=== PATIENT | female | born 1970 | race Caucasian/White ===

== ENCOUNTER 2017-02-13 10:36 | Outpatient (CLI) | payer OTHER ==
--- NOTE | 2017-02-13 11:39 | MMO ---
BILATERAL SCREENING MAMMOGRAM: DATE: 02/13/17 HISTORY: 46-year-old female for screening mammography. COMPARISON: 01/31/16, 11/21/14, 09/29/13. FINDINGS: Bilateral MLO and CC views of the breasts show heterogeneously dense breast parenchyma, which may lo wer the sensitivity of mammography. There is no evidence of suspicious mass, suspicious cluster of m icrocalcifications, or area of architectural distortion. Interpretation of this mammogram was performed with the assistance of computer-aided detection. IMPRESSION: BIRADS 1: Negative Annual screening mammography is recommended. POS: [facility]
== END 2017-02-13 10:37 | disposition home or self-care (01) ==
LOC: SCSMAMMO 10:36
PROVIDERS: ATTEND Family Medicine
DX: Z12.31 Encounter for screening mammogram for malignant neoplasm of breast (principal)
CPT/HCPCS: 77067; G0202

== ENCOUNTER 2017-07-14 01:34 | Inpatient (IN) | payer OTHER ==
[2017-07-14] MEDS ORDERED: Ondansetron HCl/PF 4 MG/2 ML Vial ONE (02:09)
[2017-07-14 02:31] LABS: ALT (SGPT) 24 U/L (8-55); AST (SGOT) 23 U/L (5-34); Albumin 3.8 g/dL (3.5-5.0); Alkaline Phosphatase 76 U/L (40-150); Anion Gap 19 mmol/L (10-20); BUN (Urea Nitrogen) 15 mg/dL (7.0-18.7); Bilirubin, Total 0.3 mg/dL (0.2-1.2); CK (CPK) 79 U/L (29-168); Calc. Creatinine Clearance 0 mL/min (70-130); Carbon Dioxide 19 mmol/L (22-29); Chloride 102 mmol/L (98-107); Estimated GFR-MDRD 67; Globulin 3.3 g/dL (2.4-3.5); Glucose 153 mg/dL (70-105); Lipase 25 U/L (8-78); Potassium 3.8 mmol/L (3.5-5.1); Protein, Total 7.1 g/dL (6.0-8.3); Sodium 136 mmol/L (136-145)
[2017-07-14 02:34] LABS: Bilirubin Negative (Negative); Blood, Urine Trace (Negative); Clarity Clear (Clear); Glucose, Urine (Dipstick) Negative (Negative); Leukocyte Negative (Negative); Nitrite Negative (Negative); Protein, Urine (Dipstick) Negative (Neg-Trace); Urobilinogen 0.2 mg/dL (0.2-1.0); pH, Urine 5.5 (5.0-9.0)
[2017-07-14 02:36] LABS: CKMB 0.9 ng/mL (0-6.6); Troponin I Less than 0.010 ng/mL (< 0.028)
[2017-07-14] MEDS ORDERED: Piperacillin/Tazobactam 4.5 GM VIAL ONE (02:45)
[2017-07-14] MEDS ORDERED: Sodium Chloride 0.9% 100 ML ONE ×2 (02:45→02:59)
[2017-07-14 02:52] LABS: Bacteria/HPF None Seen HPF (None Seen); Hyaline Casts/LPF 0-3 HYALINE CAST LPF (0-3 Hyaline); RBC/HPF 0-3 HPF (0-3); Squamous Epithelial 0-3 HPF (0-3); WBC/HPF 0-3 HPF (0-3)
[2017-07-14 03:08] LABS: Hemoglobin 11.2 g/dL (12.0-16.0); Mean Corpuscular Hemoglobin 28.7 pg (27.0-31.0); Mean Corpuscular Volume 84.2 fl (81.0-99.0); Platelet Count 283 thou/uL (130-400); RBC Distribution Width 11.7 % (11.5-14.5); Red Blood Cell (RBC) Count 3.92 mill/uL (4.20-5.40)
[2017-07-14 03:23] LABS: Band 6 % (5-11); Lymphocytes 6 % (21-51); MDiff Complete? YES; Monocytes 1 % (0-10); Neutrophil 87 % (42-75); Toxic Granulation SLIGHT
[2017-07-14] MEDS ORDERED: Ondansetron HCl/PF 4 MG/2 ML Vial IVP PRN (04:50)
[2017-07-14] MEDS ORDERED: Ondansetron ODT 4 MG TAB PO PRN (04:50)
[2017-07-14] MEDS ORDERED: Milk Of Magnesia 30 ML UDCUP PO PRN (04:50)
[2017-07-14 05:34] VITALS: BMI 31.3
[2017-07-14] MEDS: Sodium Chloride 0.9% 1,000 ML IV SCH ×2 (05:49→13:49)
[2017-07-14] MEDS: Acetaminophen 325 MG TAB PO PRN ×2 (05:49→17:33)
--- NOTE | 2017-07-14 05:53 | HP ---
PRIMARY CARE PHYSICIAN: Dr. Margarita Molina CHIEF COMPLAINT: Fever. HISTORY OF PRESENT ILLNESS: 47-year-old female with a past medical history of depression, hypertension and asthma who presented to the emergency room with complaint of fever. She reports that about 2 weeks ago, she had a high grade fever of about 103 degrees Fahrenheit associated with 2 episodes of loose stools daily. After a week this resolved and then yesterday she developed the fever again with the return of the 2 soft bowel movements daily associated with nausea. She also felt dehydrated, had chills, aches and chest discomfort. There was no history of cough, sputum production, vomiting. She has no abdominal pain, no shortness of breath. She has no urinary symptoms. She went to the emergency room at [place] where she was found to be febrile, tachycardic to the 120s, had leukocytosis and an elevated lactate of 4.1. Blood cultures were taken. Chest x-ray showed no acute pathology. She was started on broad spectrum antibiotics , vancomycin and Zosyn and sent to [facility] for further care. PAST MEDICAL HISTORY: Asthma, hypertension, depression. PAST SURGICAL HISTORY: Four C-sections, a tummy tuck, right oophorectomy, left cystectomy. SOCIAL HISTORY: She does not smoke cigarettes, but drinks alcohol occasionally. No history of withdrawal symptoms or dependence. FAMILY HISTORY: Reviewed and noncontributory. ALLERGIES: BELLADONNA, ZOLOFT. HOME MEDICATIONS: Albuterol inhaler, Benadryl 50 mg at bedtime, ferrous sulfate 7.5 mg t.i.d., fluticasone salmeterol inhaled twice daily, hydrochlorothiazide 25 mg daily, loratadine 10 mg daily, metoprolol succinate 50 mg daily, omeprazole 10 mg daily, venlafaxine 75 mg daily, zolpidem 10 mg at bedtime. REVIEW OF SYSTEMS: CONSTITUTIONAL: Positive for fevers, chills, malaise. HEENT: Negative. RESPIRATORY: Negative. CARDIOVASCULAR: Negative. ABDOMEN: Positive for nausea, otherwise negative. NEUROLOGIC: Negative. SKIN: Negative. MUSCULOSKELETAL: Negative. PSYCHIATRIC: Negative. ALLERGY/IMMUNOLOGY: Negative. PHYSICAL EXAMINATION: GENERAL: Not in acute distress, lying comfortably in bed. HEENT: PERRLA, EOMI. Normocephalic, atraumatic. Slightly dry mucous membranes , not pale, anicteric. RESPIRATORY: Vesicular breath sounds bilaterally. No wheezes or rales. CARDIOVASCULAR: S1, S2 only. Regular rate and rhythm. No murmurs, rubs or gallops. ABDOMEN: Soft, nontender, nondistended. Bowel sounds positive. No hepatosplenomegaly. : Deferred. MUSCULOSKELETAL: No edema, no skeletal abnormalities. SKIN: Warm, dry, well perfused. No rashes or lesions. NEUROLOGIC: Alert and well oriented to time, place and person. No focal deficits. PSYCHIATRIC: Normal mood and affect. LABORATORY: Significant labs include WBC of 16,000. Serum chemistry with lactate of 4.1. Troponin was less than 0.010. Lipase was not elevated. Blood cultures pending. Chest x-ray no acute abnormalities. ASSESSMENT AND PLAN: 1. Sepsis. The patient had a high grade fever, was tachycardic, had elevated WBC count and lactate levels. Blood cultures have been taken and she has been started on IV vancomycin and Zosyn. We will follow up blood cultures and also hydrate parenterally. 2. Hypertension. Blood pressure is currently at goal. We will resume home medications as tolerated. 3. Asthma. Will place her on her home inhalers as well as nebulizer of albuterol p.r.n. 4. History of depression. We will resume home medications. We will also repeat a lactic acid level. If patient has spikes of fever, we will get repeat cultures and if she has more loose stools, we will obtain stool studies. [facility]
[2017-07-14] MEDS ORDERED: Non-Formulary Item 1 EACH (Zolpidem Tartrate [Ambien] 10 MG) PO PRN (08:13)
[2017-07-14] MEDS ORDERED: PROVENTIL INHALER 6.7 G (200 INHALATIONS) INH PRN ×2 (08:13→08:20)
[2017-07-14] MEDS ORDERED: Zolpidem Tartrate 5 MG TAB PO PRN (08:22)
--- NOTE | 2017-07-14 08:29 | RAD ---
2 VIEWS CHEST: Date: 07/14/17 HISTORY: Fever. Chest pain in 47-year-old female. FINDINGS: PA and lateral views of chest obtained. The lungs are well aerated. No evidence of active intrathorac ic disease seen. No evidence of effusions, pneumonia, or pneumothorax seen. IMPRESSION: Unremarkable 2 views chest. POS: [facility]
[2017-07-14] MEDS ORDERED: FLUTICASONE IH SCH (09:00)
[2017-07-14] MEDS ORDERED: Non-Formulary Item 1 EACH (Omeprazole Magnesium [Prilosec] 40 MG) PO SCH (09:00)
[2017-07-14] MEDS ORDERED: SALMETEROL IH SCH (09:00)
[2017-07-14] MEDS ORDERED: Non-Formulary Item 1 EACH (Loratadine [Claritin] 10 MG) PO SCH (09:00)
[2017-07-14] MEDS: Loratadine 10 MG TAB PO SCH (09:19)
[2017-07-14] MEDS: Heparin 5,000 UNITS/ML VIAL SC SCH ×3 (09:19→21:28)
[2017-07-14] MEDS: Piperacillin/Tazobactam 3.375 GM in Sodium Chloride 0.9% 100 ML IVPB SCH ×3 (09:20→21:28)
[2017-07-14] MEDS ORDERED: Sodium Chloride 0.9% 1,000 ML IV SCH (09:30)
--- NOTE | 2017-07-14 10:36 | PDOC.EVN ---
Event Note - Event Note Event Note: Patient with BP 80s, recheck same. Called by nursing. Patient seen and examined. Light headed. Otherwise feels much better than in ER. Exam unremarkable except for low BP. Had 2 L NS in ER. Will bolus one more liter. Transfer to [facility]. Will start pressors if BP doesn't come up with fluids.
[2017-07-14] MEDS ORDERED: Morphine 5 MG/ML SYRINGE SLOW IVP PRN (10:39)
[2017-07-14] MEDS: Ketorolac Tromethamine 30 MG/ML VIAL IVP PRN ×2 (11:05→17:35)
[2017-07-14] MEDS ORDERED: Morphine 4 MG/ML VIAL SLOW IVP PRN (13:18)
[2017-07-14] MEDS: Albuterol Sulfate 2.5 mg/3 ml Neb NEB PRN ×2 (15:40→18:36)
[2017-07-14] MEDS: Vancomycin HCl 1 GM in Premix Bag 1 BAG IVPB SCH (17:35)
[2017-07-14] MEDS: Mometasone/Formoterol 120 PUFF INHALER INH SCH (18:38)
[2017-07-15] MEDS: Sodium Chloride 0.9% 1,000 ML IV SCH ×2 (00:23→15:39)
[2017-07-15] MEDS ORDERED: Morphine 10 MG/ML VIAL SLOW IVP PRN (02:10)
[2017-07-15] MEDS: Piperacillin/Tazobactam 3.375 GM in Sodium Chloride 0.9% 100 ML IVPB SCH ×4 (02:18→22:20)
[2017-07-15 03:52] LABS: #Eosinphils 0.1 thou/uL (0.0-0.7); Mean Corpuscular Volume 87.8 fl (81.0-99.0); RBC Distribution Width 12.2 % (11.5-14.5)
[2017-07-15 03:58] LABS: #Lymphocytes 1.8 thou/uL (1.20-3.40); #Monocytes 0.4 thou/uL (0.11-0.59); %Basophils 0.4 % (0.0-1.0); %Eosinophils 1.5 % (0.0-10.0); %Lymphocytes 33.6 % (21.0-51.0); %Monocytes 7.6 % (0.0-10.0); %Neutrophils 56.9 % (42.0-75.0); Hemoglobin 10.1 g/dL (12.0-16.0); Mean Corpuscular HGB CONC 33.2 g/dL (32.0-36.0); Mean Corpuscular Hemoglobin 29.1 pg (27.0-31.0); Platelet Count 183 thou/uL (130-400); Red Blood Cell (RBC) Count 3.47 mill/uL (4.20-5.40); White Blood Cell (WBC) Count 5.3 thou/uL (4.8-10.8)
[2017-07-15 04:07] LABS: Anion Gap 9 mmol/L (10-20); BUN (Urea Nitrogen) 6 mg/dL (7.0-18.7); Calc. Creatinine Clearance 114 mL/min (70-130); Carbon Dioxide 25 mmol/L (22-29); Chloride 108 mmol/L (98-107); Estimated GFR-MDRD 85; Glucose 88 mg/dL (70-105); Potassium 3.2 mmol/L (3.5-5.1); Sodium 139 mmol/L (136-145)
[2017-07-15] MEDS: Vancomycin HCl 1 GM in Premix Bag 1 BAG IVPB SCH ×2 (05:41→16:19)
[2017-07-15] MEDS: Mometasone/Formoterol 120 PUFF INHALER INH SCH ×2 (08:54→19:42)
[2017-07-15] MEDS: Potassium Chloride 20 MEQ TAB PO SCH ×3 (08:58→16:19)
[2017-07-15] MEDS: Loratadine 10 MG TAB PO SCH (08:58)
[2017-07-15] MEDS: Heparin 5,000 UNITS/ML VIAL SC SCH ×3 (09:09→22:25)
--- NOTE | 2017-07-15 16:07 | PDOC.PN ---
- Subjective Encounter Start Date: 07/15/17 Encounter Start Time: 12:15 -: old records requested/rev - Objective Resuscitation Status: Resuscitation Status FULL:Full Resuscitation Vital Signs & Weight: Vital Signs (12 hours) Temp Pulse Resp BP Pulse Ox 07/15/17 11:35 98.8 F 91 18 146/80 H 96 07/15/17 08:00 98.8 F 91 18 98 07/15/17 07:47 98.1 F 83 18 127/72 96 Weight Weight 163 lb 7 oz I&O: 07/14/17 07/15/17 07/16/17 06:59 06:59 06:59 Intake Total 600 2150 Balance 600 2150 Result Diagrams: 07/15/17 03:11 07/15/17 03:11 Dx/Plan (1) Colitis Code(s): K52.9 - NONINFECTIVE GASTROENTERITIS AND COLITIS, UNSPECIFIED Status : Acute (2) Septic shock Code(s): A41.9 - SEPSIS, UNSPECIFIED ORGANISM; R65.21 - SEVERE SEPSIS WITH SEPTIC SHOCK Status: Resolved (3) HTN (hypertension) Code(s): I10 - ESSENTIAL (PRIMARY) HYPERTENSION Status: Chronic Qualifiers: Hypertension type: essential hypertension Qualified Code(s): I10 - Essential (primary) hypertension (4) Depression Code(s): F32.9 - MAJOR DEPRESSIVE DISORDER, SINGLE EPISODE, UNSPECIFIED Status : Chronic Qualifiers: Depression Type: unspecified Qualified Code(s): F32.9 - Major depressive disorder, single episode, unspecified - Plan cont current plan of care, continue antibiotics, out of bed/ambulate * .
--- NOTE | 2017-07-15 17:42 | CON ---
DATE OF CONSULTATION: 07/15/2017 SERVICE: Pulmonary Medicine. REASON FOR CONSULTATION: IMCU patient. HISTORY OF PRESENT ILLNESS: The patient is a 47-year-old white female. She was in her usual state o f health until roughly 3 weeks ago. She started having fever. This was going up to 103 degrees. Sh chad thought it was a viral illness because it was accompanied with anorexia and nausea without any vomi ting and loose stools. The loose stools were described as anything that looked like softer of ice cr eam. She typically has bowel movements once every 3 days, but she found herself and having a bowel m ovement whenever she took any p.o. whatsoever. Otherwise, there was significant change to her stool color or character. She had these fevers essentially daily for a 2-week period of time. At that poi nt, they seem to refer. Roughly a couple of days ago; however, she started having recrudescence in f ever type symptoms. At this point, she decided to present to the Emergency Department for additional evaluation. In addition to these symptoms noted above, she is also experiencing fullness behind the eyes, fullness in the ears without any drainage from the nose, dyspnea, and tightness in the chest w hich seems to be reminiscent of previous asthma flares. Arthralgias, particularly with fever, as wel l as myalgia. The patient gets tested for HIV, hepatitis C, hepatitis B, and hepatitis A every single year. She wo rks in the [employer] industry, and gets a T-SPOT on the annual basis. As of this year, all of these things have been unremarkable. REVIEW OF SYSTEMS: General, head, ears, eyes, nose, throat, cardiovascular, respiratory, GI, , mus culoskeletal, neurologic and skin is negative except as mentioned in the HPI. PAST MEDICAL HISTORY: 1. Hypertension. 2. Asthma. 3. Gastroesophageal reflux disease. 4. Major depressive disorder. PAST SURGICAL HISTORY: 1. section x4. 2. Abdominoplasty. 3. Right oophorectomy. 4. Left cystectomy FAMILY HISTORY: Noncontributory. SOCIAL HISTORY: Negative for alcohol, tobacco or illicit drug use. She denies exposures to chemical s, dust asbestos or tuberculosis. ALLERGIES: BELLADONNA, ZOLOFT. MEDICATIONS: List of her inpatient medications were reviewed. No specific updates were made at this time. PHYSICAL EXAMINATION: VITAL SIGNS: Afebrile, pulse 91, blood pressure 146/80, respirations 18, and saturation 96% on room air. GENERAL: The patient awake, alert, in no apparent distress. HEENT: Normocephalic, atraumatic. Sclerae are white, conjunctivae pink. Oral and nasal mucosa is m oist without lesions. LUNGS: Excellent air entry. I do not appreciate a prolonged expiratory phase. There is no wheezing , rhonchi, or crackles present. HEART: Normal rate, regular. There is no murmur present. ABDOMEN: Soft. Minimal tenderness to palpation of the right upper quadrant without rebound or guard ing. [place]rol[place] negative. Bowel sounds are present. There is no rebound or guarding. MUSCULOSKELETAL: No cyanosis or clubbing. There is no pitting in the bilateral lower extremities. NEUROLOGIC: Grossly nonfocal. LABORATORY DATA: WBC 5.3, hemoglobin 10.1, platelets 183,000. Basic metabolic profile is unremarkab le except for potassium of 3.2. Liver function studies are unremarkable. Cardiac enzymes negative x 1. Lactate was originally 4.1, but cleared to 1.6. Urinalysis is unremarkable. Blood cultures x2 a nd influenza are unremarkable. IMAGING: Chest x-ray demonstrates no acute cardiopulmonary abnormality. ASSESSMENT: 1. Fever, recurrent 2. Dehydration. 3. Severe sepsis, possible. 4. Hypertension. 5. Asthma without acute exacerbation. PLAN: We will continue broad spectrum antibiotics while we were waiting for cultures to result. Her marginal blood pressures have completely resolved. We will check a CK, ESR, serologies including antoine pus and rheumatoid studies, sed rate, retic count, and LDH. Pulmonary will continue to follow along for the time being, but from my perspective, she is once again stable for transition out of the [facility].
[2017-07-15] MEDS ORDERED: Morphine 4 MG/ML VIAL SLOW IVP PRN (21:30)
[2017-07-16] MEDS: Piperacillin/Tazobactam 3.375 GM in Sodium Chloride 0.9% 100 ML IVPB SCH (03:07)
[2017-07-16] MEDS: Sodium Chloride 0.9% 1,000 ML IV SCH ×3 (03:54→11:48)
[2017-07-16 05:55] LABS: Reticulocyte Count 1.4 % (0.5-1.5)
[2017-07-16] MEDS: Mometasone/Formoterol 120 PUFF INHALER INH SCH (06:10)
[2017-07-16 06:22] LABS: Anion Gap 10 mmol/L (10-20); BUN (Urea Nitrogen) 11 mg/dL (7.0-18.7); CK (CPK) 37 U/L (29-168); Calc. Creatinine Clearance 97 mL/min (70-130); Calcium 9.2 mg/dL (7.8-10.44); Carbon Dioxide 26 mmol/L (22-29); Chloride 107 mmol/L (98-107); Estimated GFR-MDRD 74; Glucose 100 mg/dL (70-105); LDH 146 U/L (125-220); Magnesium 2.3 mg/dL (1.6-2.6); Phosphorus 3.6 mg/dL (2.3-4.7); Potassium 3.9 mmol/L (3.5-5.1); Sodium 139 mmol/L (136-145)
[2017-07-16 06:24] LABS: Hemoglobin 11.4 g/dL (12.0-16.0); Lymphocytes 33 % (21-51); MDiff Complete? YES; Mean Corpuscular HGB CONC 33.2 g/dL (32.0-36.0); Mean Corpuscular Hemoglobin 29.3 pg (27.0-31.0); Mean Corpuscular Volume 88.2 fl (81.0-99.0); Mean Platelet Volume 6.8 fL (7.4-10.4); Monocytes 3 % (0-10); Neutrophil 64 % (42-75); PLT Morphology Comment Appears Adequate; Platelet Count 247 thou/uL (130-400); RBC Distribution Width 12.4 % (11.5-14.5); White Blood Cell (WBC) Count 6.3 thou/uL (4.8-10.8)
[2017-07-16] MEDS ORDERED: Vancomycin HCl 1.25 GM in Sodium Chloride 0.9% 250 ML 250 ML IVPB SCH (08:00)
[2017-07-16 08:04] VITALS: TEMP 97.6
[2017-07-16] MEDS: Acetaminophen 325 MG TAB PO PRN (08:17)
[2017-07-16] MEDS: Loratadine 10 MG TAB PO SCH (08:18)
[2017-07-16] MEDS: Heparin 5,000 UNITS/ML VIAL SC SCH (08:18)
[2017-07-16] MEDS: Vancomycin HCl 1 GM in Premix Bag 1 BAG IVPB SCH (08:23)
[2017-07-16] MEDS ORDERED: metroNIDAZOLE 500 MG TAB PO SCH (09:00)
[2017-07-16 09:12] VITALS: BP 116/74
--- NOTE | 2017-07-16 09:31 | PRG ---
DATE OF SERVICE: 07/16/2017 SERVICE: Pulmonary Medicine. INTERVAL HISTORY: The patient is doing great from a respiratory standpoint. She is breathing comfor tably. She had a night sweat last night, but otherwise, she did not have any additional fevers. The chest tightness has gone away. Her belly discomfort is a little bit improved as well. Otherwise, t here has been no interval change to her condition. PHYSICAL EXAMINATION: VITAL SIGNS: Afebrile, pulse 74, blood pressure 111/54, respirations 20, saturation 100% on room air . GENERAL: The patient is awake, alert, in no apparent distress. LUNGS: Decent air entry. There is no prolonged expiratory phase, wheezing, rhonchi, or crackles. HEART: Normal rate, regular. ABDOMEN: Soft, nontender, nondistended. Bowel sounds are positive. MUSCULOSKELETAL: No cyanosis or clubbing. There is no pitting in the bilateral lower extremities. NEUROLOGIC: Grossly nonfocal. LABORATORY DATA: WBC 6.3, hemoglobin 11.4, platelets 240. Retic fraction is also quite low. The ES R is very low. The peripheral smear demonstrates normocytic and normochromic anemia. Blood cultures x2 are unremarkable. Influenza A and B are negative. ASSESSMENT: 1. Fever, recurrent. 2. Severe sepsis, possible. 3. Dehydration, resolved. 4. Hypertension. 5. Asthma without acute exacerbation. PLAN: At this point, all laboratories appear to be reassuring. There are a couple of serologies delroy t are currently pending including rheumatoid factor and an JARVIS screen. Haptoglobin is also pending. Given the normal LDH; however, this is unlikely to be remarkable. At this point, I do not see any r edin for her to remain in the hospital, and I think it would be safe from a respiratory standpoint t o discharge her. Source is completely unknown. Blood cultures are negative to date and have not bee n too terribly helpful. The patient has excellent followup and is quite reliable. As such, I do thi nk it would be reasonable to discharge her on a course of antibiotics covering GI issues as that was her most focalizing symptoms, albeit mild. If she has recrudescence in symptoms, I have directed her to return to the emergency department or notify her primary care physician. I spoke with Dr. Cannon , who is okay with and agrees with this course of action moving forward. At this point, she has no f urther requirements for inpatient Pulmonary or Critical Care opinion and I will sign off. We will ne ed to follow up on the serologies through time, but hopefully that will remain negative and her fever will stay away.
--- NOTE | 2017-07-16 14:01 | DIS ---
DATE OF ADMISSION: 07/14/2017 DATE OF DISCHARGE: 07/16/2017 PRIMARY CARE PHYSICIAN: Dr. Margarita Molina. DISCHARGE DIAGNOSES: 1. Presumed colitis, infectious. 2. Dehydration. 3. Septic shock. 4. History of essential hypertension. 5. Uncomplicated asthma. CONSULTATIONS: Pulmonary Critical Care, Dr. Triplett. PROCEDURES: None. HISTORY AND PHYSICAL: Ms. 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 She reported a history of high-grade fever to about 103 approximately 2 weeks prior to admission asso ciated with 2 episodes of loose stools daily for about a week. These are spontaneously resolved about 1 week prior to admission and then the night of admission deve loped another fever to 102 plus 2 soft bowel movements. She felt nauseated, had some chills, body ac hes, and a chest discomfort, and so presented to the emergency department for evaluation. There at the [facility] ER, she was tachycardic to the 120s. Elevated lactate of 4.1, she was hypotensive and febrile. Temperature was 101.3. Chest x-ray was negative. She was started on broad-spectrum antibiotics, given vancomycin and Zosyn, and transferred here for further care. HOSPITAL COURSE: The patient was seen and examined on arrival by Dr. Gramajo and admitted to the [facility]. She was continued on same antibiotics with vancomycin and Zosyn. The patient, on arrival to our ER in transfer, still remained hypotensive and received an additional liter of IV fluids with so me improvement. She was continued on IV fluids on admission, her blood pressure medicines were held, and a repeat lactate level was shown to be improved down to 1.6. Overnight, 07/14/2017 to 07/15/2017, the patient remained afebrile. I took the case over. She was c ontinued on the same antibiotics through the night and was feeling somewhat better. She was able to keep down some food. She took her morning potassium replacement and did become somewhat nauseated, b ut had no further diarrhea. On my exam that day, she did have some left upper and lower quadrant ten derness with minimal guarding. She has no acute abdomen findings. White blood cell count had normalized. She was continued on antibiotics overnight. By 07/16/2017, she was transitioned to oral antibiotics with Levaquin and Flagyl. She has been seen by Pulmonary Critical Care in the meantime, who was not convinced of infection, but did send off a la b work looking for signs of autoimmune or inflammatory bowel disease. She had a positive C-reactive protein of 3.4; however, sed rate was normal, LDH was normal, procalcitonin was 0.2, and the patient continued to improve on the antibiotics. She was tolerating p.o., had negative orthostatics on the d ay of discharge, and was stable for discharge with outpatient followup. PHYSICAL EXAMINATION: The patient was seen and examined on the day of discharge. Discharge plan and disposition was discussed with the patient [id number] at the bedside. Abdominal tenderness had resolved. DISCHARGE MEDICATIONS: 1. Levofloxacin 500 mg p.o. daily for 7 more days. 2. Metronidazole 500 mg p.o. t.i.d. for 7 more days. 3. Albuterol sulfate HFA 2 puffs inhaled as needed. 4. Fluticasone/salmeterol 230/21, 2 inhalations inhaled b.i.d. 5. HCTZ 25 mg daily to restart in 2 days. 6. Claritin 10 mg daily. 7. Metoprolol succinate 50 mg p.o. daily to restart in 2 days. 8. Omeprazole 40 mg daily. 9. Venlafaxine 300 mg p.o. daily. 10. Ambien 10 mg p.o. at bedtime p.r.n. FOLLOWUP APPOINTMENTS: Primary care physician, Dr. Molina, within a week. DISCHARGE ACTIVITY: Per cardiopulmonary limits. DISCHARGE DIET: Heart healthy recommended. DISCHARGE CONDITION: Stable. DISPOSITION: Will be discharged home via private vehicle.
[2017-07-16 15:28] LABS: EliA RAS New Method **** NEW METHOD ****; Rheumatoid Factor IgA Antibody 2.1 IU/mL (<14 Negative); Rheumatoid Factor IgM Antibody 1.2 IU/mL (<3.5 Negative); dsDNA IgG Antibody 1.3 IU/mL (<10 Negative)
[2017-07-18 04:18] LABS: Haptoglobin 226 mg/dL (34-200)
[2017-07-18 17:28] LABS: Anti-Striation AB Negative (Neg:<1:40); Antinuclear AB Negative (Negative); Antiparietal Cell Ab 3.4 Units (0.0-20.0); Complement C4 32 mg/dL (14-44); DSDNA AutoAb 1 IU/mL (0-9); SCL-70 IgG AutoAb <0.2 AI (0.0-0.9); Smith IgG AutoAb 0.2 AI (0.0-0.9); Smooth Muscle AB 29 Units (0-19); Thyroid Peroxidase Abs 16 IU/mL (0-34); U1 RNP/SNRNP IgG AutoAb <0.2 AI (0.0-0.9)
== END 2017-07-16 12:45 | disposition home or self-care (01) | DRG 871 ==
LOC: SCSER 01:34 → 2SE 04:11 → IMCU/EMU 10:52 → ONC 07-15 18:26
PROVIDERS: ADMIT Internal Medicine; ATTEND Internal Medicine
DX: A41.9 Sepsis, unspecified organism (principal); R65.21 Severe sepsis with septic shock; A09 Infectious gastroenteritis and colitis, unspecified; E86.0 Dehydration; F32.9 Major depressive disorder, single episode, unspecified; I10 Essential (primary) hypertension; J45.909 Unspecified asthma, uncomplicated; Z88.8 Allergy status to other drugs, medicaments and biological substances; K21.9 Gastro-esophageal reflux disease without esophagitis; F41.9 Anxiety disorder, unspecified
CPT/HCPCS: 36415; 71046; 80048; 80053; 80202; 81003; 81015; 82550; 82553; 83010; 83516; 83520; 83605; 83615; 83690; 83735; 84100; 84145; 84484; 85007; 85025; 85027; 85046; 85060; 85652; 86140; 86160; 86200; 86225; 86235; 86376; 86431; 87040; 93005; 94640; 96361; 96365; 96375; A4216; J1644; J2270; J2405; J2543; J3370; J7050; J7611